=== PATIENT | male | born 1970 | race Caucasian/White ===

== ENCOUNTER 2020-03-30 06:21 | Day surgery (SDC) | payer OTHER ==
[2020-03-30] MEDS ORDERED: Lactated Ringers 1,000 ML IV SCH (06:30)
[2020-03-30] MEDS ORDERED: DIPRIVAN 200 MG/20 ML IV ONE ×2 (07:45→08:11)
--- NOTE | 2020-03-30 08:45 | OP ---
SURGERY DATE/TIME: 03/30/2020801 PREOPERATIVE DIAGNOSIS: Screening colonoscopy. POSTOPERATIVE DIAGNOSIS: Normal colon. PROCEDURE: Colonoscopy. SURGEON: Andre Woods M.D. ANESTHESIA: MAC by Geovanni Dong CRNA. ESTIMATED BLOOD LOSS: None. SPECIMENS: None. DESCRIPTION OF PROCEDURE: After informed written consent was obtained, the patient was taken to the endoscopy suite. He was placed in left lateral decubitus position and underwent monitored anesthesia. Digital rectal exam showed normal sphincter tone and no internal lesions. The scope was inserted into the rectum and sequentially the entire colonic mucosa was traversed. The level of cecum was reached and verified with direct visualization of ileocecal valve. Upon withdrawal careful mucosal inspection revealed no gross abnormalities. Prep was noted to be fair. There was some liquid semisolid stool in several areas but overall the exam was felt to be adequate. Prior to withdrawal retroflexion was performed and showed no internal lesions. The scope was removed and the patient was transferred to the recovery room in good condition.
[2020-03-30 09:43] VITALS: PULSE 71; O2SAT 96
[2020-03-30 09:45] VITALS: BP 135/58
== END 2020-03-30 09:49 | disposition home or self-care (01) ==
LOC: SDC 06:21
PROVIDERS: ATTEND Family Medicine
DX: Z12.11 Encounter for screening for malignant neoplasm of colon (principal)
CPT/HCPCS: J2704

== ENCOUNTER 2020-09-08 16:12 | Observation (INO) | payer OTHER ==
[2020-09-08] MEDS ORDERED: Hydromorphone 1 mg/ml Injection IV ONE (16:29)
[2020-09-08] MEDS ORDERED: Sodium Chloride 0.9% 1000 ML 1,000 ML IV STA (16:29)
[2020-09-08] MEDS ORDERED: Zofran 4 MG/2 ML VIAL IV ONE (16:33)
[2020-09-08] MEDS ORDERED: Hydromorphone 1 mg/ml Injection ONE (16:34)
[2020-09-08] MEDS ORDERED: Zofran 4 MG/2 ML VIAL ONE (16:34)
[2020-09-08] MEDS ORDERED: Sodium Chloride 0.9% 1000 ML 1,000 ML ONE (16:35)
[2020-09-08 17:02] LABS: Absolute Neutrophil Ct (ANC) 8.49 (1.4-6.9); BASOPHIL % 0.1 % (0.0-0.4); Basophil (Absolute #) 0.02 (0-0.4); Eosinophil % 1.1 % (0.00-5.0); Eosinophil (Absolute #) 0.15 (0-0.5); Hematocrit 44.5 % (42-50); Lymphocyte (Absolute #) 3.59 (1.0-4.6); Lymphocytes % 26.4 % (24.0-44.0); Mean Cell Volume 86.4 fl (78-100); Mean Corpuscular Hemoglobin 29.1 pg (26-32); Mean Corpuscular Hgb Concent. 33.7 g/dl (32-36); Mean Platelet Volume 10.5 fl (7.5-11.0); Monocyte (Absolute #) 1.33 (0.0-1.3); Monocytes % 9.8 % (0.0-12.0); Neutrophil % 62.6 % (36.0-66.0); Platelet Count 219 K/mm3 (150-450); Red Blood Count 5.15 M/mm3 (4.1-5.6); Red Cell Distribution Width 13.3 % (11.5-14.0); White Blood Count 13.6 K/mm3 (4.0-10.5)
[2020-09-08 17:03] LABS: Appearance SLIGHTLY CLOUDY (CLEAR); Bacteria NONE SEEN /HPF (NEGATIVE); Bilirubin NEGATIVE (NEGATIVE); Blood NEGATIVE Ery/ul (0-5); Glucose NEGATIVE (NEGATIVE); Ketones NEGATIVE (NEGATIVE); Leukocyte Esterase NEGATIVE (NEGATIVE); Mucus SLIGHT /HPF (NEGATIVE); Nitrite NEGATIVE (NEGATIVE); Protein,Urine Dip NEGATIVE (Negative); Specific Gravity 1.015 (1.005-1.025); Urobilinogen NEGATIVE mg/dL (0-1)
--- NOTE | 2020-09-08 17:11 | XRAY ---
Indication: Abdomen pain. Comparison: None Portable chest clear. Heart and mediastinal structures within normal limits. Bony thorax intact with mild degenerative changes. Impression: Nonacute chest.
--- NOTE | 2020-09-08 17:11 | XRAY ---
Indication: Abdomen pain. Multiple contiguous axial images obtained through the abdomen and pelvis without contrast. Comparison: None Lung bases demonstrates bibasilar subsegmental atelectasis/scarring left greater than right. No infiltrate or effusion. Heart is not enlarged. Small hiatal hernia. Noncontrasted stomach and bowel loops appear nonobstructed. Normal appendix. Minimal sigmoid diverticulosis. Abnormal distended gallbladder with a few centimeter/subcentimeter gallstones, wall thickening, and pericholecystic stranding favoring acute cholecystitis. Tiny free fluid along the right colic gutter presumed reactive. No walled off fluid collection or free air. Remaining liver, pancreas, spleen, adrenal glands, kidneys, ureters, bladder, and aorta appear unremarkable for noncontrast exam. Osseous structures intact with mild degenerative changes throughout the thoracolumbar spine. Impression: 1. Abnormal gallbladder with CT features favoring acute cholecystitis with cholelithiasis. 2. Incidental sigmoid diverticulosis and small hiatal hernia.
[2020-09-08 17:18] LABS: ALBUMIN 4.5 g/dL (3.5-5.0); ALKALINE PHOSPHATASE 37 U/L (38-126); AMYLASE 47 U/L (30-110); ANION GAP 15.1 MEQ/L (5-15); BLOOD UREA NITROGEN 16 mg/dL (9-20); CHLORIDE 101 mmol/L (98-107); Calcium 9.6 mg/dL (8.4-10.2); Carbon Dioxide 25 mmol/L (22-30); Creatinine 1 1.28 mg/dL (0.66-1.25); Direct Bilirubin 0.4 mg/dL (0.0-0.4); EST GLOMERULAR FILTRATION RATE > 60.0 ML/MIN; Glucose 128 mg/dL (74-106); LIPASE 52 U/L (23-300); Potassium 3.6 mmol/L (3.5-5.1); SGOT/AST 41 U/L (17-59); SGPT/ALT 64 U/L (0-50); SODIUM 137 mmol/L (137-145); TROPONIN < 0.012 ng/mL (0.000-0.034); Total Protein 8.3 g/dL (6.3-8.2)
[2020-09-08] MEDS ORDERED: Zosyn 3.375 GM Vial 3.375 GM in Sodium Chloride 100ML MINI-BAG PLUS 100 ML IV ONE (17:21)
--- NOTE | 2020-09-08 17:22 | ERPHSYRPT ---
- History of Present Illness Time Seen by Provider: 09/08/20 17:03 Historian: patient Exam Limitations: no limitations Patient Subjective Stated Complaint: Abdominal pain Triage Nursing Assessment: Patient ambulated back to ED and transferred self to bed. Patient A+O x3. Patient's skin pink, warm and dry. Patient complains of abdominal pain that started Friday morning. Patient complains of constant sharp pain 9/10 to mid abdomen region. Patient's abdomen soft and round with BS X 4. Patient has noted rebound tenderness to RUQ. Patient also complains of N/V and constipation. Physician History: 50 years old male presented in the ER with chief complaint of upper abdominal pain for the last 3 days sudden onset, worsening, moderate to severe sharp nature more in the epigastric and right upper quadrant area with no radiation, aggravated with movements palpation and oral intake. Associated with multiple episodes of nonprojectile, nonbilious vomiting intermittently with no hematemesis. Denies fever or chills. Timing/Duration: day(s) (3), gradual onset, worse Activities at Onset: activity, rest Quality: sharpness Abdominal Pain Onset Location: RUQ, epigastric, periumbilical Pain Radiation: no radiation Severity of Pain-Max: severe Severity of Pain-Current: severe Modifying Factors: Worsens With: coughing, eating, movement, palpation, vomiting Associated Symptoms: nausea, vomiting Previous symptoms: no prior history Allergies/Adverse Reactions: No Known Drug Allergies Allergy (Verified 09/08/20 16:18) Home Medications: Losartan/Hydrochlorothiazide [Losartan-Hctz 100-12.5 mg Tab] 1 each PO DAILY 03/29/20 [History] Hx Influenza Vaccination/Date Given: No Hx Pneumococcal Vaccination/Date Given: No Immunizations Up to Date: Yes Travel Risk - International Travel Have you traveled outside of the country in past 3 weeks: No - Coronavirus Screening Are you exhibiting any of the following symptoms?: No Close contact with a COVID-19 positive Pt in past 14-21 Days: No - Vaccine Status Have you recieved a Covid-19 vaccination: No - Review of Systems Constitutional: No Symptoms Eyes: No Symptoms Ears, Nose, & Throat: No Symptoms Respiratory: No Symptoms Cardiac: No Symptoms Abdominal/Gastrointestinal: Abdominal Pain, Nausea, Vomiting Genitourinary Symptoms: No Symptoms Musculoskeletal: No Symptoms Skin: No Symptoms Neurological: No Symptoms Psychological: No Symptoms Endocrine: No Symptoms Hematologic/Lymphatic: No Symptoms Immunological/Allergic: No Symptoms - Past Medical History Pertinent Past Medical History: Yes Neurological History: No Pertinent History ENT History: No Pertinent History Cardiac History: High Cholesterol, Hypertension Respiratory History: No Pertinent History Endocrine Medical History: No Pertinent History Musculoskeletal History: No Pertinent History GI Medical History: Hernia History: No Pertinent History Psycho-Social History: No Pertinent History Male Reproductive Disorders: No Pertinent History - Past Surgical History Past Surgical History: Yes Neuro Surgical History: No Pertinent History Cardiac: No Pertinent History Respiratory: No Pertinent History Gastrointestinal: Hernia Repair Genitourinary: No Pertinent History Musculoskeletal: No Pertinent History Male Surgical History: No Pertinent History Other Surgical History: tonsils out - Social History Smoking Status: Never smoker Exposure to second hand smoke: No Drug Use: none Patient Lives Alone: No - Nursing Vital Signs Nursing Vital Signs: Initial Vital Signs Temperature 98.5 F 09/08/20 16:22 Pulse Rate 79 09/08/20 16:22 Respiratory Rate 18 09/08/20 16:22 Blood Pressure 114/69 09/08/20 16:22 O2 Sat by Pulse Oximetry 96 09/08/20 16:22 Pain Scale Pain Intensity 9 - Physical Exam General Appearance: no apparent distress, alert Eye Exam: PERRL/EOMI, eyes nml inspection Ears, Nose, Throat Exam: normal ENT inspection, pharynx normal Neck Exam: normal inspection, non-tender, supple, full range of motion Respiratory Exam: normal breath sounds, lungs clear Cardiovascular Exam: regular rate/rhythm, normal heart sounds Gastrointestinal/Abdomen Exam: soft, tenderness (Upper abdomen, epigastric/right upper quadrant/epigastric area. Positive Reza sign.), guarding, No normal bowel sounds Back Exam: normal inspection, normal range of motion Extremity Exam: normal inspection, normal range of motion Neurologic Exam: alert, oriented x 3, cooperative Skin Exam: normal color SpO2 Interpretation: normal SpO2: 96 O2 Delivery: Room Air Ordered Tests: Active Orders 24 hr Category Date Time Status Code Status Order ROUTINE Care 09/08/20 16:29 Active ABDOMEN AND PELVIS W/0 CONTRAS [CT] Stat Exams 09/08/20 16:29 Completed CHEST 1 VIEW (PORTABLE) Stat Exams 09/08/20 16:34 Completed AMYLASE Stat Lab 09/08/20 16:25 Completed BMP/HFII Stat Lab 09/08/20 16:25 Completed CBC W DIFF Stat Lab 09/08/20 16:25 Completed CULTURE,URINE Stat Lab 09/08/20 16:36 Received LIPASE Stat Lab 09/08/20 16:25 Completed TROPONIN Stat Lab 09/08/20 16:25 Completed UA W/RFX UR CULTURE Stat Lab 09/08/20 16:36 Completed Medication Summary Discontinued Medications Generic Name Dose Route Start Last Admin Trade Name Kashifq PRN Reason Stop Dose Admin Hydromorphone HCl 0.5 mg 09/08/20 16:29 09/08/20 16:37 Hydromorphone 1 Mg/Ml Injection IV 09/08/20 16:30 0.5 mg STAT ONE Administration Hydromorphone HCl Confirm 09/08/20 16:34 Hydromorphone 1 Mg/Ml Injection Administered 09/08/20 16:35 Dose 1 mg .ROUTE .STK-MED ONE Sodium Chloride 1,000 mls @ 999 mls/hr 09/08/20 16:29 09/08/20 16:38 Sodium Chloride 0.9% 1000 Ml IV 09/08/20 17:29 999 mls/hr .Q1H1M STA Administration Sodium Chloride Confirm 09/08/20 16:35 Sodium Chloride 0.9% 1000 Ml Administered 09/08/20 16:36 Dose 1,000 mls @ ud .ROUTE .STK-MED ONE Piperacillin Sod/Tazobactam 100 mls @ 200 mls/hr 09/08/20 17:21 09/08/20 17:33 Sod 3.375 gm/ Sodium Chloride IV 09/08/20 17:50 200 mls/hr STAT ONE Administration Sodium Chloride Confirm 09/08/20 17:24 Sodium Chloride 0.9% 100 Ml Ivpb Administered 09/08/20 17:25 Dose 100 mls @ ud IV .STK-MED ONE Sodium Chloride Confirm 09/08/20 17:26 Sodium Chloride 100ml Mini-Bag Plus Administered 09/08/20 17:27 Dose 100 mls @ ud IV .STK-MED ONE Ondansetron HCl 4 mg 09/08/20 16:33 09/08/20 16:37 Zofran 4 Mg/2 Ml Vial IV 09/08/20 16:34 4 mg STAT ONE Administration Ondansetron HCl Confirm 09/08/20 16:34 Zofran 4 Mg/2 Ml Vial Administered 09/08/20 16:35 Dose 4 mg .ROUTE .STK-MED ONE Piperacillin Sod/Tazobactam Sod Confirm 09/08/20 17:23 Zosyn 3.375 Gm Vial Administered 09/08/20 17:24 Dose 3.375 gm IV .STK-MED ONE Piperacillin Sod/Tazobactam Sod Confirm 09/08/20 17:26 Zosyn 3.375 Gm Vial Administered 09/08/20 17:27 Dose 3.375 gm IV .STK-MED ONE Lab/Rad Data: Laboratory Result Diagrams 09/08/20 16:25 09/08/20 16:25 Laboratory Results 09/08/20 09/08/20 09/08/20 Range/Units 16:36 16:25 16:25 WBC 13.6 H (4.0-10.5) K/mm3 RBC 5.15 (4.1-5.6) M/mm3 Hgb 15.0 (12.5-18.0) gm/dl Hct 44.5 (42-50) % MCV 86.4 (78-100) fl MCH 29.1 (26-32) pg MCHC 33.7 (32-36) g/dl RDW 13.3 (11.5-14.0) % Plt Count 219 (150-450) K/mm3 MPV 10.5 (7.5-11.0) fl Gran % 62.6 (36.0-66.0) % Eos # (Auto) 0.15 (0-0.5) Absolute Lymphs (auto) 3.59 (1.0-4.6) Absolute Monos (auto) 1.33 H (0.0-1.3) Lymphocytes % 26.4 (24.0-44.0) % Monocytes % 9.8 (0.0-12.0) % Eosinophils % 1.1 (0.00-5.0) % Basophils % 0.1 (0.0-0.4) % Absolute Granulocytes 8.49 H (1.4-6.9) Basophils # 0.02 (0-0.4) Sodium 137 (137-145) mmol/L Potassium 3.6 (3.5-5.1) mmol/L Chloride 101 (98-107) mmol/L Carbon Dioxide 25 (22-30) mmol/L Anion Gap 15.1 H (5-15) MEQ/L BUN 16 (9-20) mg/dL Creatinine 1.28 H (0.66-1.25) mg/dL Estimated GFR > 60.0 ML/MIN Glucose 128 H (74-106) mg/dL Calcium 9.6 (8.4-10.2) mg/dL Total Bilirubin 1.20 (0.2-1.3) mg/dL Direct Bilirubin 0.4 (0.0-0.4) mg/dL AST 41 (17-59) U/L ALT 64 H (0-50) U/L Alkaline Phosphatase 37 L (38-126) U/L Troponin I < 0.012 (0.000-0.034) ng/mL Serum Total Protein 8.3 H (6.3-8.2) g/dL Albumin 4.5 (3.5-5.0) g/dL Amylase 47 (30-110) U/L Lipase 52 (23-300) U/L Urine Color YELLOW (YELLOW) Urine Appearance SLIGHTLY CLOUDY (CLEAR) Urine pH 5.0 (5-6) Ur Specific [place] 1.015 (1.005-1.025) Urine Protein NEGATIVE (Negative) Urine Ketones NEGATIVE (NEGATIVE) Urine Blood NEGATIVE (0-5) William/ul Urine Nitrite NEGATIVE (NEGATIVE) Urine Bilirubin NEGATIVE (NEGATIVE) Urine Urobilinogen NEGATIVE (0-1) mg/dL Ur Leukocyte Esterase NEGATIVE (NEGATIVE) Urine WBC (Auto) 3-5 (0-5) /HPF Urine RBC (Auto) NONE (0-2) /HPF U Epithel Cells (Auto) NONE (FEW) /HPF Urine Bacteria (Auto) NONE SEEN (NEGATIVE) /HPF Urine Mucus (Auto) SLIGHT (NEGATIVE) /HPF Urine Culture Reflexed NO (NO) Urine Glucose NEGATIVE (NEGATIVE) mg/dL - Progress Progress: improved, pain not gone completely, re-examined Progress Note: 09/08/20 17:59 50 Years old is evaluated for upper abdominal pain with vomiting. Given fluid bolus and Dilaudid for pain relief. Work-up showed white count 13, mildly elevated transaminases and normal bilirubin. Also has some CASSIE. CT showed cholelithiasis with findings suggestive of acute cholecystitis. Discussed with Dr. Castillo and patient would be admitted to hospital under care of medical service and n.p.o. after midnight and cholecystectomy in the morning. Is given a dose of Zosyn in here. Discussed with Dr.: Nba, Other (Dr. Castillo) Will see patient in: hospital (observation) Counseled pt/family regarding: lab results, diagnosis, rad results - Departure Departure Disposition: Observation Clinical Impression: Acute cholecystitis Condition: Stable Critical Care Time: No Referrals: CHAVEZ GUTHRIE MD [Primary Care Provider] -
[2020-09-08] MEDS ORDERED: Zosyn 3.375 GM Vial IV ONE ×3 (17:23→23:19)
[2020-09-08] MEDS ORDERED: Sodium Chloride 0.9% 100 ML IVPB 0 ML IV ONE (17:24)
[2020-09-08] MEDS ORDERED: Sodium Chloride 100ML MINI-BAG PLUS 100 ML IV ONE ×2 (17:26→23:20)
[2020-09-08 19:57] LABS: INFLUENZA A NEGATIVE (NEGATIVE); INFLUENZA B NEGATIVE (NEGATIVE); RESPIRATORY SYNCTIAL VIRUS NEGATIVE (Negative)
[2020-09-08] MEDS ORDERED: Zofran 4 MG/2 ML VIAL IV PRN (21:02)
[2020-09-08] MEDS ORDERED: MORPHINE SULFATE 4 MG INJ IV PRN (21:02)
[2020-09-08] MEDS ORDERED: Sodium Chloride 0.9% W/ 20 mEq KCl/LITER 1,000 ML IV SCH (21:02)
[2020-09-09] MEDS ORDERED: Zosyn 3.375 GM Vial 3.375 GM in Sodium Chloride 100ML MINI-BAG PLUS 100 ML IV SCH ×2
[2020-09-09] MEDS ORDERED: Sodium Chloride 0.9% 100 ML IVPB 100 ML IV ONE (05:39)
[2020-09-09] MEDS ORDERED: Unasyn 3 GM Vial ONE (05:40)
[2020-09-09] MEDS ORDERED: Lactated Ringers 1,000 ML IV ONE ×2 (05:42→10:32)
[2020-09-09] MEDS ORDERED: MEFOXIN 2 GM PREMIX** 2 GM/50 ML ML IV SCH (06:00)
[2020-09-09] MEDS: Lactated Ringers 1,000 ML IV SCH (06:27)
[2020-09-09] MEDS: Unasyn 3GM / NaCl 100ML 3 GM/100 ML IVPB IV SCH ×4 (06:28→23:55)
[2020-09-09 07:10] LABS: ALBUMIN 4.1 g/dL (3.5-5.0); ALKALINE PHOSPHATASE 32 U/L (38-126); ANION GAP 12.7 MEQ/L (5-15); BLOOD UREA NITROGEN 16 mg/dL (9-20); CHLORIDE 105 mmol/L (98-107); Calcium 9.3 mg/dL (8.4-10.2); Carbon Dioxide 24 mmol/L (22-30); Creatinine 1 1.23 mg/dL (0.66-1.25); EST GLOMERULAR FILTRATION RATE > 60.0 ML/MIN; Glucose 131 mg/dL (74-106); Potassium 4.1 mmol/L (3.5-5.1); SGOT/AST 41 U/L (17-59); SGPT/ALT 68 U/L (0-50); SODIUM 138 mmol/L (137-145); Total Protein 7.6 g/dL (6.3-8.2)
[2020-09-09 07:12] LABS: Absolute Neutrophil Ct (ANC) 8.48 (1.4-6.9); BASOPHIL % 0.1 % (0.0-0.4); Basophil (Absolute #) 0.01 (0-0.4); Eosinophil % 0.6 % (0.00-5.0); Eosinophil (Absolute #) 0.07 (0-0.5); Hematocrit 42.7 % (42-50); Hemoglobin 14.1 gm/dl (12.5-18.0); Lymphocyte (Absolute #) 2.52 (1.0-4.6); Mean Cell Volume 88.2 fl (78-100); Mean Corpuscular Hemoglobin 29.1 pg (26-32); Mean Platelet Volume 10.6 fl (7.5-11.0); Monocyte (Absolute #) 0.92 (0.0-1.3); Monocytes % 7.7 % (0.0-12.0); Neutrophil % 70.6 % (36.0-66.0); Platelet Count 198 K/mm3 (150-450); Red Blood Count 4.84 M/mm3 (4.1-5.6); Red Cell Distribution Width 13.5 % (11.5-14.0)
[2020-09-09] MEDS ORDERED: Sensorcaine 0.25% 10 ML ONE (08:19)
[2020-09-09] MEDS ORDERED: Zofran 4 MG/2 ML VIAL ONE (08:52)
[2020-09-09] MEDS ORDERED: Xylocaine-Mpf 2% 5 Ml Vial ONE (08:52)
[2020-09-09] MEDS ORDERED: DIPRIVAN 200 MG/20 ML IV ONE (08:52)
[2020-09-09] MEDS ORDERED: TORAdol 30 mg Injection ONE (08:52)
[2020-09-09] MEDS ORDERED: BRIDION 200MG/2ML IV ONE (08:52)
[2020-09-09] MEDS ORDERED: Zemuron 100 MG/10 ML ONE ×2 (08:52→09:43)
[2020-09-09] MEDS ORDERED: SUBLIMAZE 100 MCG/2 ML ONE ×2 (08:52→10:14)
[2020-09-09] MEDS ORDERED: Decadron 4 MG INJ ONE (08:52)
[2020-09-09] MEDS ORDERED: Ephedrine Sulfate 50 MG/ML ONE (09:35)
[2020-09-09] MEDS ORDERED: PROTONIX 40 MG IV IV SCH (10:00)
--- NOTE | 2020-09-09 10:36 | PCM.HP ---
History of Present Illness - Chief Complaint Chief Complaint: Acute cholecystitis History of Present Illness: is a 50 year old male. Medications & Allergies Home Medications: Home Medication List Losartan/Hydrochlorothiazide [Losartan-Hctz 100-12.5 mg Tab] 1 each PO DAILY 03/29/20 [History Confirmed 09/08/20] Allergies/Adverse Reactions: Allergies Allergy/AdvReac Type Severity Reaction Status Date / Time No Known Drug Allergies Allergy Verified 09/08/20 16:18 - Past Medical History Past Medical History: Yes Neurological History: No Pertinent History ENT History: No Pertinent History Cardiac History: High Cholesterol, Hypertension Respiratory History: No Pertinent History Endocrine Medical History: No Pertinent History Musculoskelatal History: No Pertinent History GI Medical History: Hernia History: No Pertinent History Pyscho-Social History: No Pertinent History Male Reproductive Disorders: No Pertinent History - Past Surgical History Past Surgical History: Yes Neuro Surgical History: No Pertinent History Cardiac History: No Pertinent History Respiratory Surgery: No Pertinent History GI Surgical History: Hernia Repair Genitourinary Surgical Hx: No Pertinent History Musculskeletal Surgical Hx: No Pertinent History Male Surgical History: No Pertinent History Other Surgical History: tonsils out - Social History Smoking Status: Never smoker Exposure to second hand smoke: No Alcohol: None Drug Use: none - Physical Exam Vital Signs: Vital Signs - 24 hr Temp Pulse Resp BP Pulse Ox 09/09/20 08:00 16 09/09/20 07:40 98.5 F 83 16 113/63 95 09/09/20 07:00 98.5 F 83 16 113/63 95 09/09/20 04:05 99.0 F 92 H 16 111/58 96 09/09/20 00:06 98.6 F 74 18 123/65 98 09/08/20 21:32 98.7 F 91 H 21 129/71 96 09/08/20 20:16 86 114/77 96 09/08/20 19:00 82 18 116/70 96 09/08/20 18:00 96 09/08/20 18:00 86 18 124/72 100 09/08/20 16:22 98.5 F 79 18 114/69 96 Results - Labs Lab/Micro Results: Lab Results-Last 24 Hours 09/08/20 09/08/20 09/08/20 Range/Units 16:25 16:25 16:36 WBC 13.6 H (4.0-10.5) K/mm3 RBC 5.15 (4.1-5.6) M/mm3 Hgb 15.0 (12.5-18.0) gm/dl Hct 44.5 (42-50) % MCV 86.4 (78-100) fl MCH 29.1 (26-32) pg MCHC 33.7 (32-36) g/dl RDW 13.3 (11.5-14.0) % Plt Count 219 (150-450) K/mm3 MPV 10.5 (7.5-11.0) fl Gran % 62.6 (36.0-66.0) % Eos # (Auto) 0.15 (0-0.5) Absolute Lymphs (auto) 3.59 (1.0-4.6) Absolute Monos (auto) 1.33 H (0.0-1.3) Lymphocytes % 26.4 (24.0-44.0) % Monocytes % 9.8 (0.0-12.0) % Eosinophils % 1.1 (0.00-5.0) % Basophils % 0.1 (0.0-0.4) % Absolute Granulocytes 8.49 H (1.4-6.9) Basophils # 0.02 (0-0.4) Sodium 137 (137-145) mmol/L Potassium 3.6 (3.5-5.1) mmol/L Chloride 101 (98-107) mmol/L Carbon Dioxide 25 (22-30) mmol/L Anion Gap 15.1 H (5-15) MEQ/L BUN 16 (9-20) mg/dL Creatinine 1.28 H (0.66-1.25) mg/dL Estimated GFR > 60.0 ML/MIN Glucose 128 H (74-106) mg/dL Calcium 9.6 (8.4-10.2) mg/dL Total Bilirubin 1.20 (0.2-1.3) mg/dL Direct Bilirubin 0.4 (0.0-0.4) mg/dL AST 41 (17-59) U/L ALT 64 H (0-50) U/L Alkaline Phosphatase 37 L (38-126) U/L Troponin I < 0.012 (0.000-0.034) ng/mL Serum Total Protein 8.3 H (6.3-8.2) g/dL Albumin 4.5 (3.5-5.0) g/dL Amylase 47 (30-110) U/L Lipase 52 (23-300) U/L Urine Color YELLOW (YELLOW) Urine Appearance SLIGHTLY CLOUDY (CLEAR) Urine pH 5.0 (5-6) Ur Specific [place] 1.015 (1.005-1.025) Urine Protein NEGATIVE (Negative) Urine Ketones NEGATIVE (NEGATIVE) Urine Blood NEGATIVE (0-5) William/ul Urine Nitrite NEGATIVE (NEGATIVE) Urine Bilirubin NEGATIVE (NEGATIVE) Urine Urobilinogen NEGATIVE (0-1) mg/dL Ur Leukocyte Esterase NEGATIVE (NEGATIVE) Urine WBC (Auto) 3-5 (0-5) /HPF Urine RBC (Auto) NONE (0-2) /HPF U Epithel Cells (Auto) NONE (FEW) /HPF Urine Bacteria (Auto) NONE SEEN (NEGATIVE) /HPF Urine Mucus (Auto) SLIGHT (NEGATIVE) /HPF Urine Culture Reflexed NO (NO) Urine Glucose NEGATIVE (NEGATIVE) mg/dL Influenza Type A Ag (NEGATIVE) Influenza Type B Ag (NEGATIVE) RSV (PCR) (Negative) SARS-CoV-2 (PCR) (NEGATIVE) 09/08/20 09/09/20 09/09/20 Range/Units 19:16 06:20 06:20 WBC 12.0 H (4.0-10.5) K/mm3 RBC 4.84 (4.1-5.6) M/mm3 Hgb 14.1 (12.5-18.0) gm/dl Hct 42.7 (42-50) % MCV 88.2 (78-100) fl MCH 29.1 (26-32) pg MCHC 33.0 (32-36) g/dl RDW 13.5 (11.5-14.0) % Plt Count 198 (150-450) K/mm3 MPV 10.6 (7.5-11.0) fl Gran % 70.6 H (36.0-66.0) % Eos # (Auto) 0.07 (0-0.5) Absolute Lymphs (auto) 2.52 (1.0-4.6) Absolute Monos (auto) 0.92 (0.0-1.3) Lymphocytes % 21.0 L (24.0-44.0) % Monocytes % 7.7 (0.0-12.0) % Eosinophils % 0.6 (0.00-5.0) % Basophils % 0.1 (0.0-0.4) % Absolute Granulocytes 8.48 H (1.4-6.9) Basophils # 0.01 (0-0.4) Sodium 138 (137-145) mmol/L Potassium 4.1 (3.5-5.1) mmol/L Chloride 105 (98-107) mmol/L Carbon Dioxide 24 (22-30) mmol/L Anion Gap 12.7 (5-15) MEQ/L BUN 16 (9-20) mg/dL Creatinine 1.23 (0.66-1.25) mg/dL Estimated GFR > 60.0 ML/MIN Glucose 131 H (74-106) mg/dL Calcium 9.3 (8.4-10.2) mg/dL Total Bilirubin 1.30 (0.2-1.3) mg/dL Direct Bilirubin (0.0-0.4) mg/dL AST 41 (17-59) U/L ALT 68 H (0-50) U/L Alkaline Phosphatase 32 L (38-126) U/L Troponin I (0.000-0.034) ng/mL Serum Total Protein 7.6 (6.3-8.2) g/dL Albumin 4.1 (3.5-5.0) g/dL Amylase (30-110) U/L Lipase (23-300) U/L Urine Color (YELLOW) Urine Appearance (CLEAR) Urine pH (5-6) Ur Specific [place] (1.005-1.025) Urine Protein (Negative) Urine Ketones (NEGATIVE) Urine Blood (0-5) William/ul Urine Nitrite (NEGATIVE) Urine Bilirubin (NEGATIVE) Urine Urobilinogen (0-1) mg/dL Ur Leukocyte Esterase (NEGATIVE) Urine WBC (Auto) (0-5) /HPF Urine RBC (Auto) (0-2) /HPF U Epithel Cells (Auto) (FEW) /HPF Urine Bacteria (Auto) (NEGATIVE) /HPF Urine Mucus (Auto) (NEGATIVE) /HPF Urine Culture Reflexed (NO) Urine Glucose (NEGATIVE) mg/dL Influenza Type A Ag NEGATIVE (NEGATIVE) Influenza Type B Ag NEGATIVE (NEGATIVE) RSV (PCR) NEGATIVE (Negative) SARS-CoV-2 (PCR) NEGATIVE (NEGATIVE) Microbiology 09/08/20 16:36 Urine Culture - Preliminary Clean Catch Midstream NO GROWTH TO DATE - Radiology Impressions Radiology Exams & Impressions: Radiology Procedures Category Date Time Status ABDOMEN AND PELVIS W/0 CONTRAS [CT] Stat Exams 09/08/20 16:29 Completed CHEST 1 VIEW (PORTABLE) Stat Exams 09/08/20 16:34 Completed
[2020-09-09] MEDS ORDERED: NORCO 5/325 MG PO PRN (12:00)
[2020-09-09] MEDS ORDERED: hydroDIURIL 25 MG PO SCH (14:00)
[2020-09-09] MEDS ORDERED: Cozaar 50 MG PO SCH (14:00)
[2020-09-10] MEDS: Lactated Ringers 1,000 ML IV SCH (03:35)
[2020-09-10] MEDS: Unasyn 3GM / NaCl 100ML 3 GM/100 ML IVPB IV SCH (06:05)
[2020-09-10 07:24] VITALS: BP 127/61; PULSE 73; O2SAT 94
[2020-09-10] MEDS ORDERED: NON-FORMULARY ITEM (Losartan/Hydrochlorothiazide [Losartan-Hctz 100-12.5 Mg Tab] 1 EACH) PO SCH (10:00)
--- NOTE | 2020-09-11 15:14 | CONS ---
CONSULT DATE: 09/09/2020 REASON FOR CONSULT: Surgical management of acute cholecystitis and cholelithiasis. HISTORY: The patient is a 50 year-old who came to the emergency room complaining of right upper quadrant abdominal pain. He was found to have acute cholecystitis by clinical and radiological findings and I was asked to see him in consultation for surgical management. PAST MEDICAL HISTORY: His past medical history seems to be overall unremarkable. He does have some hypertension. He has had an umbilical hernia repair. His tonsils and adenoids removed. Otherwise he seems to be pretty healthy. REVIEW OF SYSTEMS: He denies any cardiovascular, neurological or symptoms. PHYSICAL EXAMINATION: On exam he is alert and oriented. HEENT: Pupils equal and normoreactive. NECK: Supple. COR: Regular rhythm. ABDOMEN: Tender in the right upper quadrant. EXTREMITIES: Within normal limits. No pedal edema. IMPRESSION: Acute cholecystitis and cholelithiasis. PLAN: Proceed with laparoscopic cholecystectomy possible open.
--- NOTE | 2020-09-11 15:29 | OP ---
SURGERY DATE/TIME: 09/09/2020 0909 PREOPERATIVE DIAGNOSIS: Acute cholecystitis and cholelithiasis. POSTOPERATIVE DIAGNOSIS: Acute cholecystitis and cholelithiasis. PROCEDURE: Laparoscopic cholecystectomy. SURGEON: Aurelio Everett M.D. ANESTHESIA: General. ESTIMATED BLOOD LOSS: Minimal. COMPLICATIONS: None. INDICATIONS: The patient is a 50 year-old male diagnosed with acute cholecystitis and cholelithiasis who was taken to surgery for laparoscopic cholecystectomy done today without complication. DESCRIPTION OF PROCEDURE AND FINDINGS: The patient was taken to the OR, placed on the operating table in supine position. The abdomen was prepped and draped in the usual sterile fashion. A small supraumbilical incision was made. The Veress needle was introduced. The abdomen was insufflated with CO2 and the trocar was placed using the Visiport. The remaining ports placed under direct laparoscopic vision. The gallbladder was identified and was distended and with some gangrenous patches. The aspirating needle was used to aspirate about 60 cc of dark bile this allowed us to expose the neck and eventually start resecting towards the neck of the gallbladder where we identified the cystic duct and the cystic artery. The cystic duct was somehow dilated and radiologic clip sandwich and drink cart operator was not long enough to control securely the circumference of the duct and for this reason we switch port to a 12 and using the Endo stapler with a vascular clamp to staple right below the neck of the gallbladder. This gave us secure control of the cystic duct. At this point the cystic artery was resected doubly clipped and divided. The posterior branch was also seen and was doubly clipped and divided. The gallbladder was then dissected off of the gallbladder fossa using the Bovie and was introduced into EndoCatch bag and then removed from the epigastric trocar site extending the incision to allow delivery of the thick walled gallbladder. When this was done the wound was irrigated. The CAMRON drain was left in place and was brought out from the most lateral 5 mm trocar port and the secured with 0 PDS suture. The pneumoperitoneum was then released and the trocars removed. The 10 mm trocar site closed with 0 Vicryl for the fascia and 4-0 Vicryl to close the skin edge in subcuticular fashion. Dressing was then applied. The patient tolerated this procedure well and was taken back to the recovery area in overall stable condition.
== END 2020-09-10 09:42 | disposition home or self-care (01) ==
LOC: ED 16:12 → MED SURG 20:57
PROVIDERS: ADMIT Family Medicine; ATTEND Family Medicine
DX: K80.00 Calculus of gallbladder with acute cholecystitis without obstruction (principal); I10 Essential (primary) hypertension; Z20.828 Contact with and (suspected) exposure to other viral communicable diseases; Z79.899 Other long term (current) drug therapy; E78.00 Pure hypercholesterolemia, unspecified
CPT/HCPCS: 0241U; 36000; 36415; 47562; 71045; 74176; 80048; 80053; 80076; 81001; 82150; 83690; 84484; 85025; 87086; 96360; 96374; 96375; 99284; G0378; J0295; J0694; J1100; J1170; J1885; J2405; J2704; J3010; A9270-GY